=== PATIENT | female | born 1995 | race Two or more races ===

== ENCOUNTER 2018-05-22 11:44 | Inpatient (IN) | payer OTHER ==
[2018-05-22 13:13] LABS: ADD MAN DIFF? NO
[2018-05-22 13:15] LABS: WHITE BLOOD COUNT 8.8 10^3/ul (4.8-10.8)
[2018-05-22 13:15] LABS: BASOPHILS % 0.2 % (0.0-2.0); EOSINOPHILS # 0.2 10^3/ul (0.0-0.5); EOSINOPHILS % 1.7 % (0.0-7.0); HEMATOCRIT 33.7 % (37.0-47.0); HEMOGLOBIN 11.5 g/dl (12.0-16.0); LYMPHOCYTES # 1.8 10^3/ul (0.8-2.9); LYMPHOCYTES % 19.9 % (15.0-51.0); MEAN CORPUSCULAR HEMOGLOBIN 28.8 pg (29.0-33.0); MEAN CORPUSCULAR HGB CONC 34.1 g/dl (32.0-37.0); MEAN CORPUSCULAR VOLUME 84.3 fl (82.0-101.0); MEAN PLATELET VOLUME 10.2 fl (7.4-10.4); MONOCYTE # 0.5 10^3/ul (0.3-0.9); MONOCYTES % 5.7 % (0.0-11.0); NEUTROPHIL # 6.3 10^3/ul (1.6-7.5); NEUTROPHILS % 71.8 % (39.0-77.0); PLATELET COUNT 246 10^3/UL (140-415); RED CELL DISTRIBUTION WIDTH 12.5 % (11.5-14.5)
[2018-05-22 13:20] LABS: ADD UMIC NO; UR ASCORBIC ACID NEGATIVE (NEGATIVE); UR BILIRUBIN (Dip) NEGATIVE (NEGATIVE); UR BLOOD (Dip) NEGATIVE (NEGATIVE); UR CLARITY CLEAR (CLEAR); UR COLOR STRAW (YELLOW); UR GLUCOSE (Dip) NEGATIVE (NEGATIVE); UR KETONES (Dip) NEGATIVE (NEGATIVE); UR LEUKOCYTE ESTERASE (Dip) NEGATIVE Leu/ul (NEGATIVE); UR NITRITE (Dip) NEGATIVE (NEGATIVE); UR SPECIFIC GRAVITY (Dip) 1.002 (1.003-1.030); UR TOTAL PROTEIN (Dip) NEGATIVE (NEGATIVE); UR UROBILINOGEN (Dip) NEGATIVE (NEGATIVE)
[2018-05-22 13:40] LABS: URIC ACID 4.2 mg/dl (3.1-7.9)
[2018-05-22 15:19] LABS: ALANINE AMINOTRANSFERASE 18 IU/L (13-69); ALBUMIN 3.4 g/dl (3.3-4.9); ALBUMIN/GLOBULIN RATIO 1.09; ALKALINE PHOSPHATASE 156 IU/L (42-121); ANION GAP 11 (5-13); ASPARTATE AMINO TRANSFERASE 12 IU/L (15-46); BILIRUBIN,INDIRECT 0.1 mg/dl (0-1.1); BILIRUBIN,TOTAL 0.1 mg/dl (0.2-1.3); BLOOD UREA NITROGEN 7 mg/dl (7-20); CALCIUM 9.4 mg/dl (8.4-10.2); CARBON DIOXIDE 20 mmol/L (21-31); CHLORIDE 105 mmol/L (97-110); CREATININE 0.36 mg/dl (0.44-1.00); Estimated GFR > 60 mL/min (>60); GLUCOSE 70 mg/dl (70-220); SODIUM 136 mmol/L (135-144); TOTAL PROTEIN 6.5 g/dl (6.1-8.1)
[2018-05-22] MEDS: LACTATED RINGER'S 1,000 ML IV ×2 (17:10→23:50)
[2018-05-22] MEDS: ASPIRIN 81 MG TAB PO (18:35)
[2018-05-22] MEDS: DEXAMETHASONE 4 MG/ML 5 ML INJ IM (18:37)
[2018-05-22] MEDS: PRENATAL VITAMIN PO (22:46)
[2018-05-23] MEDS: DEXAMETHASONE 4 MG/ML 5 ML INJ IM ×2 (04:55→17:20)
[2018-05-23] MEDS: LACTATED RINGER'S 1,000 ML IV (06:50)
[2018-05-23] MEDS ORDERED: PRENATAL VITAMIN PO (09:00)
[2018-05-23] MEDS: ASPIRIN 81 MG TAB PO (09:59)
[2018-05-23 18:04] LABS: COLLECTION PERIOD 24 hrs; SCRET 0.36 mg/dl (0.44-1.00); VOLUME 5500 ml/24hrs
[2018-05-23 18:05] LABS: CREATININE CLEARANCE 287.8 mls/min (84.0-162.0); CREATININE,URINE RANDOM 27.13 mg/dl (20-320); VOLUME 5500 mls
[2018-05-23 18:06] LABS: COLLECTION PERIOD 24 hrs
[2018-05-23 18:07] LABS: 24HR URINE TOTAL PROTEIN > 600.0 mg/24hrs (42.0-225.0)
[2018-05-23] MEDS: PRENATAL VITAMIN PO (21:06)
[2018-05-23] MEDS: NACL 0.9% 3 ML SYG IV (21:09)
[2018-05-24] MEDS: DEXAMETHASONE 4 MG/ML 5 ML INJ IM (05:28)
[2018-05-24] MEDS: ASPIRIN 81 MG TAB PO (09:23)
[2018-05-24] MEDS: PRENATAL VITAMIN PO (09:23)
[2018-05-24] MEDS: NACL 0.9% 3 ML SYG IV ×2 (09:58→21:32)
[2018-05-25] MEDS: ASPIRIN 81 MG TAB PO (09:49)
[2018-05-25] MEDS: PRENATAL VITAMIN PO (09:49)
[2018-05-26] MEDS: PRENATAL VITAMIN PO (09:25)
[2018-05-26] MEDS: ASPIRIN 81 MG TAB PO (09:25)
[2018-05-26] MEDS: NACL 0.9% 3 ML SYG IV (23:17)
[2018-05-26] MEDS ORDERED: LACTATED RINGER'S 1,000 ML IV (23:30)
[2018-05-27] MEDS: NACL 0.9% 3 ML SYG IV (06:38)
[2018-05-27] MEDS: ASPIRIN 81 MG TAB PO (09:10)
[2018-05-27] MEDS: PRENATAL VITAMIN PO (09:10)
[2018-05-27 11:36] LABS: ADD MAN DIFF? NO
[2018-05-27 11:43] LABS: WHITE BLOOD COUNT 8.6 10^3/ul (4.8-10.8)
[2018-05-27 11:43] LABS: BASOPHILS % 0.2 % (0.0-2.0); EOSINOPHILS # 0.3 10^3/ul (0.0-0.5); EOSINOPHILS % 2.9 % (0.0-7.0); HEMATOCRIT 33.7 % (37.0-47.0); HEMOGLOBIN 11.5 g/dl (12.0-16.0); LYMPHOCYTES # 1.4 10^3/ul (0.8-2.9); LYMPHOCYTES % 15.6 % (15.0-51.0); MEAN CORPUSCULAR HEMOGLOBIN 28.6 pg (29.0-33.0); MEAN CORPUSCULAR HGB CONC 34.1 g/dl (32.0-37.0); MEAN CORPUSCULAR VOLUME 83.8 fl (82.0-101.0); MEAN PLATELET VOLUME 10.6 fl (7.4-10.4); MONOCYTE # 0.5 10^3/ul (0.3-0.9); MONOCYTES % 5.4 % (0.0-11.0); NEUTROPHIL # 6.5 10^3/ul (1.6-7.5); NEUTROPHILS % 75.2 % (39.0-77.0); PLATELET COUNT 219 10^3/UL (140-415); RED BLOOD COUNT 4.02 10^6/ul (4.20-5.40); RED CELL DISTRIBUTION WIDTH 12.3 % (11.5-14.5)
[2018-05-27 12:02] LABS: INR 0.92; PROTIME 12.5 Sec (11.9-14.9)
[2018-05-27 12:03] LABS: PARTIAL THROMBOPLASTIN TIME 30.2 Sec (23.0-35.0)
[2018-05-27 12:04] LABS: ALANINE AMINOTRANSFERASE 16 IU/L (13-69); ALBUMIN 3.3 g/dl (3.3-4.9); ALKALINE PHOSPHATASE 143 IU/L (42-121); ANION GAP 12 (5-13); ASPARTATE AMINO TRANSFERASE 10 IU/L (15-46); BILIRUBIN,INDIRECT 0.1 mg/dl (0-1.1); BILIRUBIN,TOTAL 0.1 mg/dl (0.2-1.3); BLOOD UREA NITROGEN 9 mg/dl (7-20); CALCIUM 9.3 mg/dl (8.4-10.2); CARBON DIOXIDE 21 mmol/L (21-31); CHLORIDE 103 mmol/L (97-110); Estimated GFR > 60 mL/min (>60); GLUCOSE 93 mg/dl (70-220); POTASSIUM 3.9 mmol/L (3.5-5.1); SODIUM 136 mmol/L (135-144); TOTAL PROTEIN 6.6 g/dl (6.1-8.1); URIC ACID 4.7 mg/dl (3.1-7.9)
[2018-05-28] MEDS: ASPIRIN 81 MG TAB PO (08:14)
[2018-05-28] MEDS: PRENATAL VITAMIN PO (08:14)
[2018-05-28] MEDS: NACL 0.9% 3 ML SYG IV (20:58)
[2018-05-29] MEDS: NACL 0.9% 3 ML SYG IV ×2 (06:17→22:37)
[2018-05-29] MEDS: PRENATAL VITAMIN PO (09:45)
[2018-05-29] MEDS: ASPIRIN 81 MG TAB PO (09:46)
[2018-05-30] MEDS: PRENATAL VITAMIN PO (08:37)
[2018-05-30] MEDS: ASPIRIN 81 MG TAB PO (08:37)
[2018-05-31] MEDS: ASPIRIN 81 MG TAB PO (09:15)
[2018-05-31] MEDS: PRENATAL VITAMIN PO (09:15)
[2018-06-01] MEDS: PRENATAL VITAMIN PO (09:27)
[2018-06-01] MEDS: ASPIRIN 81 MG TAB PO (09:27)
[2018-06-02] MEDS: LACTATED RINGER'S 1,000 ML IV ×2 (09:59→16:26)
[2018-06-02] MEDS ORDERED: BUTORPHANOL 2 MG INJ IV (10:00)
[2018-06-02] MEDS ORDERED: IBUPROFEN 600 MG TAB PO (10:00)
[2018-06-02] MEDS ORDERED: LIDOCAINE 1% (MPF) 30 ML INJ INJ (10:00)
[2018-06-02] MEDS ORDERED: AMPICILLIN 2 GM/NS (PMX) 100 ML IV (10:00)
[2018-06-02] MEDS ORDERED: OXYTOCIN 30 UNITS/LR 500 ML IV ×2 (10:00)
[2018-06-02 10:07] LABS: ADD MAN DIFF? NO
[2018-06-02 10:12] LABS: WHITE BLOOD COUNT 8.3 10^3/ul (4.8-10.8)
[2018-06-02 10:12] LABS: BASOPHILS % 0.1 % (0.0-2.0); EOSINOPHILS # 0.2 10^3/ul (0.0-0.5); EOSINOPHILS % 1.9 % (0.0-7.0); HEMATOCRIT 32.3 % (37.0-47.0); HEMOGLOBIN 11.1 g/dl (12.0-16.0); LYMPHOCYTES # 1.8 10^3/ul (0.8-2.9); LYMPHOCYTES % 21.7 % (15.0-51.0); MEAN CORPUSCULAR HEMOGLOBIN 28.6 pg (29.0-33.0); MEAN CORPUSCULAR HGB CONC 34.4 g/dl (32.0-37.0); MEAN CORPUSCULAR VOLUME 83.2 fl (82.0-101.0); MEAN PLATELET VOLUME 10.8 fl (7.4-10.4); MONOCYTE # 0.4 10^3/ul (0.3-0.9); MONOCYTES % 5.2 % (0.0-11.0); NEUTROPHIL # 5.9 10^3/ul (1.6-7.5); NEUTROPHILS % 70.9 % (39.0-77.0); PLATELET COUNT 218 10^3/UL (140-415); RED BLOOD COUNT 3.88 10^6/ul (4.20-5.40); RED CELL DISTRIBUTION WIDTH 12.6 % (11.5-14.5)
[2018-06-02 10:31] LABS: INR 0.83; PARTIAL THROMBOPLASTIN TIME 30.7 Sec (23.0-35.0); PROTIME 11.5 Sec (11.9-14.9); PT RATIO 0.9
[2018-06-02 11:33] LABS: HEPATITIS B SURFACE ANTIGEN NEGATIVE (NEGATIVE)
[2018-06-02] MEDS: MISOPROSTOL 50 MCG CAPSULE PO ×3 (11:54→21:00)
[2018-06-02] MEDS ORDERED: MISOPROSTOL 50 MCG CAPSULE PO (13:00)
[2018-06-02] MEDS ORDERED: AMPICILLIN 1 GM/NS (PMX) 50 ML IV (14:00)
[2018-06-02 15:01] LABS: ALANINE AMINOTRANSFERASE 7 IU/L (13-69); ALBUMIN 3.4 g/dl (3.3-4.9); ALBUMIN/GLOBULIN RATIO 1.03; ALKALINE PHOSPHATASE 193 IU/L (42-121); ANION GAP 8 (5-13); ASPARTATE AMINO TRANSFERASE 14 IU/L (15-46); BLOOD UREA NITROGEN 10 mg/dl (7-20); CALCIUM 9.5 mg/dl (8.4-10.2); CARBON DIOXIDE 20 mmol/L (21-31); CHLORIDE 111 mmol/L (97-110); CREATININE 0.41 mg/dl (0.44-1.00); Estimated GFR > 60 mL/min (>60); GLUCOSE 90 mg/dl (70-220); POTASSIUM 4.1 mmol/L (3.5-5.1); SODIUM 139 mmol/L (135-144); TOTAL PROTEIN 6.7 g/dl (6.1-8.1); URIC ACID 5.7 mg/dl (3.1-7.9)
[2018-06-02 19:45] LABS: RAPID PLASMA REAGIN NONREACTIVE (NR)
[2018-06-03] MEDS: LACTATED RINGER'S 1,000 ML IV ×3 (00:39→21:11)
[2018-06-03] MEDS: MISOPROSTOL 50 MCG CAPSULE PO ×3 (01:13→09:01)
[2018-06-03] MEDS ORDERED: MAGNESIUM SULFATE 4 GM/100 ML 100 ML (09:56)
[2018-06-03] MEDS: MAGNESIUM SULFATE 4 GM/100 ML 100 ML IV (10:09)
[2018-06-03] MEDS: MAGNESIUM SULFATE 20 GM/500 ML 500 ML IV ×2 (10:40→20:52)
[2018-06-03] MEDS: OXYTOCIN 30 UNITS/LR 500 ML IV (14:34)
[2018-06-03] MEDS: ACETAMINOPHEN 325 MG TAB PO ×2 (16:06→20:55)
[2018-06-03 19:36] LABS: MAGNESIUM 4.6 mg/dl (1.7-2.5)
[2018-06-03] MEDS: ONDANSETRON 4 MG INJ IV (21:38)
[2018-06-04] MEDS: ACETAMINOPHEN 325 MG TAB PO ×3 (01:05→13:28)
[2018-06-04] MEDS: MAGNESIUM SULFATE 20 GM/500 ML 500 ML IV ×2 (06:41→16:48)
[2018-06-04 09:01] LABS: MAGNESIUM 5.7 mg/dl (1.7-2.5)
[2018-06-04] MEDS: LACTATED RINGER'S 1,000 ML IV ×3 (09:47→19:41)
[2018-06-04] MEDS: OXYTOCIN 30 UNITS/LR 500 ML IV (10:36)
[2018-06-04 13:27] LABS: MAGNESIUM 5.6 mg/dl (1.7-2.5)
[2018-06-04 19:46] LABS: MAGNESIUM 5.8 mg/dl (1.7-2.5)
[2018-06-04] MEDS ORDERED: FENTAnyl 2MCG/ML-ROPIV 0.2% 100 ML (19:49)
[2018-06-04] MEDS ORDERED: ONDANSETRON 4 MG INJ IV (20:00)
[2018-06-04] MEDS ORDERED: NALOXONE (0.4 MG/ML) INJ IV (20:00)
[2018-06-04] MEDS ORDERED: DIPHENHYDRAMINE 50 MG INJ IV (20:00)
[2018-06-05 01:04] LABS: MAGNESIUM 5.5 mg/dl (1.7-2.5)
[2018-06-05] MEDS: FENTAnyl 2MCG/ML-ROPIV 0.2% 100 ML BAG EPI ×3 (02:01→11:47)
[2018-06-05] MEDS: AMPICILLIN 2 GM/NS (PMX) 100 ML IVPB (02:29)
[2018-06-05] MEDS: MAGNESIUM SULFATE 20 GM/500 ML 500 ML IV ×2 (02:31→13:30)
[2018-06-05] MEDS: LACTATED RINGER'S 1,000 ML IV ×3 (03:27→23:48)
[2018-06-05] MEDS: DEXTROSE 5%-LR 1,000 ML IV (04:00)
[2018-06-05] MEDS: LABETALOL HCL 20MG INJ IV ×2 (05:46→12:17)
[2018-06-05] MEDS ORDERED: OXYTOCIN 30 UNITS/LR 500 ML BAG IV (07:00)
[2018-06-05] MEDS: AMPICILLIN 1 GM/NS (PMX) 50 ML IVPB ×2 (07:20→11:21)
[2018-06-05] MEDS ORDERED: MISOPROSTOL 200 MCG TAB (10:30)
[2018-06-05] MEDS ORDERED: METHYLERGONOVINE 0.2 MG INJ IM ×3 (11:00→13:00)
[2018-06-05] MEDS ORDERED: OXYTOCIN 30 UNITS/LR 500 ML IV ×5 (11:00→19:00)
[2018-06-05] MEDS ORDERED: MISOPROSTOL 200 MCG TAB PR ×5 (11:00→19:00)
[2018-06-05] MEDS ORDERED: CARBOPROST 250 MCG INJ IM ×5 (11:00→19:00)
[2018-06-05] MEDS ORDERED: ONDANSETRON 4 MG INJ (12:48)
[2018-06-05] MEDS ORDERED: ZOLPIDEM 5 MG TAB PO (13:00)
[2018-06-05] MEDS ORDERED: ONDANSETRON 4 MG INJ IV (13:00)
[2018-06-05] MEDS ORDERED: NALOXONE (0.4 MG/ML) INJ IV (13:00)
[2018-06-05] MEDS ORDERED: FENTAnyl 50 MCG/ML VIAL IV ×2 (13:00)
[2018-06-05] MEDS ORDERED: HYDROmorphONE 1 MG/5 ML IV SYRINGE IV ×3 (13:00)
[2018-06-05] MEDS ORDERED: DIPHENHYDRAMINE 50 MG INJ IV ×2 (13:00)
[2018-06-05] MEDS ORDERED: HYDROmorphONE 0.5 MG/0.5 ML SYG IV (13:00)
[2018-06-05] MEDS: FAMOTIDINE 20 MG INJ IV (13:07)
[2018-06-05] MEDS: METOCLOPRAMIDE 10 MG INJ IV (13:07)
[2018-06-05] MEDS: ONDANSETRON 4 MG INJ IV (13:07)
[2018-06-05] MEDS ORDERED: LIDOCAINE 1.5%/EPI MPF (SDV) 30 ML VIAL (13:41)
[2018-06-05] MEDS ORDERED: morphine SULFATE/PF (10 MG/10 ML) INJ (13:41)
[2018-06-05] MEDS ORDERED: OXYTOCIN 10 UNIT INJ ×2 (13:47→14:15)
[2018-06-05] MEDS: OXYTOCIN 30 UNITS/LR 500 ML IV ×2 (15:56→18:36)
[2018-06-05] MEDS: CEFAZOLIN 2 GM/50 ML (PMX) 50 ML IVPB (17:00)
[2018-06-05] MEDS: KETOROLAC 30 MG INJ IV (17:17)
[2018-06-05 18:41] LABS: ADD MAN DIFF? NO
[2018-06-05 18:43] LABS: WHITE BLOOD COUNT 16.4 10^3/ul (4.8-10.8)
[2018-06-05 18:43] LABS: BASOPHILS % 0.2 % (0.0-2.0); HEMOGLOBIN 9.6 g/dl (12.0-16.0); LYMPHOCYTES # 1.1 10^3/ul (0.8-2.9); LYMPHOCYTES % 6.5 % (15.0-51.0); MEAN CORPUSCULAR HEMOGLOBIN 29.2 pg (29.0-33.0); MEAN CORPUSCULAR HGB CONC 34.3 g/dl (32.0-37.0); MEAN CORPUSCULAR VOLUME 85.1 fl (82.0-101.0); MEAN PLATELET VOLUME 10.1 fl (7.4-10.4); MONOCYTE # 0.7 10^3/ul (0.3-0.9); MONOCYTES % 4.5 % (0.0-11.0); NEUTROPHIL # 14.5 10^3/ul (1.6-7.5); PLATELET COUNT 185 10^3/UL (140-415); RED BLOOD COUNT 3.29 10^6/ul (4.20-5.40); RED CELL DISTRIBUTION WIDTH 12.4 % (11.5-14.5)
[2018-06-05 19:00] LABS: INR 0.99; PROTIME 13.2 Sec (11.9-14.9)
[2018-06-05] MEDS ORDERED: NACL 0.9% 3 ML SYG IV (19:00)
[2018-06-05 19:01] LABS: PARTIAL THROMBOPLASTIN TIME 33.3 Sec (23.0-35.0)
[2018-06-05 19:11] LABS: MAGNESIUM 5.9 mg/dl (1.7-2.5)
[2018-06-05] MEDS: HYDROmorphONE 0.5 MG/0.5 ML SYG IV (20:28)
[2018-06-06] MEDS: MAGNESIUM SULFATE 20 GM/500 ML 500 ML IV ×2 (00:46→12:17)
[2018-06-06 01:29] LABS: MAGNESIUM 5.7 mg/dl (1.7-2.5)
[2018-06-06] MEDS: KETOROLAC 30 MG INJ IV ×2 (01:33→14:13)
[2018-06-06 06:45] LABS: ADD MAN DIFF? NO
[2018-06-06 06:48] LABS: WHITE BLOOD COUNT 11.3 10^3/ul (4.8-10.8)
[2018-06-06 06:48] LABS: BASOPHILS % 0.1 % (0.0-2.0); EOSINOPHILS % 0.3 % (0.0-7.0); HEMOGLOBIN 8.7 g/dl (12.0-16.0); LYMPHOCYTES # 1.6 10^3/ul (0.8-2.9); LYMPHOCYTES % 13.9 % (15.0-51.0); MEAN CORPUSCULAR HEMOGLOBIN 28.2 pg (29.0-33.0); MEAN CORPUSCULAR HGB CONC 33.5 g/dl (32.0-37.0); MEAN CORPUSCULAR VOLUME 84.4 fl (82.0-101.0); MEAN PLATELET VOLUME 9.9 fl (7.4-10.4); MONOCYTE # 0.7 10^3/ul (0.3-0.9); NEUTROPHIL # 8.9 10^3/ul (1.6-7.5); NEUTROPHILS % 79.1 % (39.0-77.0); PLATELET COUNT 195 10^3/UL (140-415); RED BLOOD COUNT 3.08 10^6/ul (4.20-5.40); RED CELL DISTRIBUTION WIDTH 12.7 % (11.5-14.5)
[2018-06-06 07:13] LABS: MAGNESIUM 5.4 mg/dl (1.7-2.5)
[2018-06-06] MEDS: LACTATED RINGER'S 1,000 ML IV ×2 (08:54→12:34)
[2018-06-06] MEDS ORDERED: LABETALOL 100 MG TAB PO (11:30)
[2018-06-06] MEDS: LABETALOL 100 MG TAB PO ×2 (12:15→21:24)
[2018-06-06 16:42] LABS: RAPID PLASMA REAGIN NONREACTIVE (NR)
[2018-06-07] MEDS: HYDROCODONE/APAP (5/325) TAB PO ×2 (03:34→09:14)
[2018-06-07] MEDS: LABETALOL 100 MG TAB PO (09:08)
[2018-06-07] MEDS: IBUPROFEN 800 MG TAB PO ×2 (12:48→21:01)
[2018-06-07] MEDS: LABETALOL 200 MG TAB PO (21:00)
[2018-06-07] MEDS: MAGNESIUM HYDROXIDE 30ML CUP PO (21:00)
[2018-06-07] MEDS: DOCUSATE SODIUM 100 MG CAP PO (21:01)
[2018-06-08] MEDS: IBUPROFEN 800 MG TAB PO ×3 (09:03→21:00)
[2018-06-08] MEDS: LABETALOL 200 MG TAB PO ×2 (09:03→20:44)
[2018-06-08] MEDS: DIPHTH/TET/ACEL PERTUSS (ADULT) 0.5 ML VIAL IM* (09:04)
[2018-06-09] MEDS: LANOLIN HPA 1 PKT TOP (09:49)
[2018-06-09] MEDS: DOCUSATE SODIUM 100 MG CAP PO (09:50)
[2018-06-09] MEDS: IBUPROFEN 800 MG TAB PO ×3 (09:50→21:19)
[2018-06-09] MEDS: LABETALOL 200 MG TAB PO ×2 (09:51→17:16)
[2018-06-10] MEDS: LABETALOL 200 MG TAB PO ×2 (01:22→09:27)
[2018-06-10] MEDS: IBUPROFEN 800 MG TAB PO ×3 (09:26→21:00)
[2018-06-10] MEDS: NIFEdipine (XL) 60 MG TAB PO (12:24)
[2018-06-10 22:30] LABS: ADD MAN DIFF? NO
[2018-06-10 22:31] LABS: BASOPHILS % 0.2 % (0.0-2.0); EOSINOPHILS # 0.5 10^3/ul (0.0-0.5); EOSINOPHILS % 4.3 % (0.0-7.0); HEMATOCRIT 27.2 % (37.0-47.0); HEMOGLOBIN 9.2 g/dl (12.0-16.0); LYMPHOCYTES # 1.9 10^3/ul (0.8-2.9); LYMPHOCYTES % 17.3 % (15.0-51.0); MEAN CORPUSCULAR HEMOGLOBIN 28.8 pg (29.0-33.0); MEAN CORPUSCULAR HGB CONC 33.8 g/dl (32.0-37.0); MEAN PLATELET VOLUME 8.5 fl (7.4-10.4); MONOCYTE # 0.5 10^3/ul (0.3-0.9); MONOCYTES % 4.8 % (0.0-11.0); NEUTROPHIL # 7.6 10^3/ul (1.6-7.5); NEUTROPHILS % 69.8 % (39.0-77.0); PLATELET COUNT 321 10^3/UL (140-415); RED CELL DISTRIBUTION WIDTH 12.6 % (11.5-14.5)
[2018-06-10 22:31] LABS: WHITE BLOOD COUNT 10.8 10^3/ul (4.8-10.8)
[2018-06-10 22:49] LABS: ALANINE AMINOTRANSFERASE 23 IU/L (13-69); ALBUMIN 4.1 g/dl (3.3-4.9); ALKALINE PHOSPHATASE 155 IU/L (42-121); ANION GAP 14 (5-13); ASPARTATE AMINO TRANSFERASE 22 IU/L (15-46); BILIRUBIN,INDIRECT 0.1 mg/dl (0-1.1); BILIRUBIN,TOTAL 0.1 mg/dl (0.2-1.3); BLOOD UREA NITROGEN 8 mg/dl (7-20); CALCIUM 9.6 mg/dl (8.4-10.2); CARBON DIOXIDE 24 mmol/L (21-31); CHLORIDE 106 mmol/L (97-110); Estimated GFR > 60 mL/min (>60); GLUCOSE 96 mg/dl (70-220); POTASSIUM 3.9 mmol/L (3.5-5.1); SODIUM 144 mmol/L (135-144); TOTAL PROTEIN 7.8 g/dl (6.1-8.1); URIC ACID 3.8 mg/dl (3.1-7.9)
[2018-06-11] MEDS: HYDROCODONE/APAP (5/325) TAB PO (03:29)
[2018-06-11] MEDS: IBUPROFEN 800 MG TAB PO ×2 (09:29→12:56)
[2018-06-11] MEDS: NIFEdipine (XL) 60 MG TAB PO (09:30)
== END 2018-06-11 17:35 | disposition home or self-care (01) | DRG 807 ==
LOC: OBT 11:44 → L-D 05-24 12:21 → PP1 05-25 09:59 → L-D 06-02 09:15 → PP1 06-05 18:00 → OBT 16:20 → L-D 16:20
PROVIDERS: Obstetrics & Gynecology
PROC: 10E0XZZ Delivery of Products of Conception, External Approach (ICD-10-PCS; principal; 2018-06-05)
DX: O14.14 Severe pre-eclampsia complicating childbirth (principal); Z37.0 Single live birth; O62.0 Primary inadequate contractions; O76 Abnormality in fetal heart rate and rhythm complicating labor and delivery; Z3A.37 37 weeks gestation of pregnancy
CPT/HCPCS: 62319; 76815; 76818; 80053; 81003; 82575; 83735; 84156; 84560; 85025; 85610; 85730; 86592; 86850; 86900; 86901; 87340; 99464